=== PATIENT | male | born 1950 | race Caucasian/White ===

== ENCOUNTER → 2018-12-05 | Outpatient (CLI) | payer MEDICARE, MEDICAID | LOC: COL.RAD 14:58 | DX: R06.00 Dyspnea, unspecified (principal); Z87.09 Personal history of other diseases of the respiratory system ==

== ENCOUNTER 2018-12-19 10:42 | Emergency (ER) | payer MEDICARE, MEDICAID ==
[~2018-12-19] VITALS: Ht 170.2 cm; Wt 70.5 kg
[2018-12-19 10:58] VITALS: TEMP 97.5
[2018-12-19 12:00] LABS: BASO # 0.1 (0.0-0.2); BASO % 1.3 % (0.0-2.0); EOS # 0.2 (0.0-0.7); EOS % 2.6 % (0-4.0); GRAN # 3.9 (1.4-6.5); GRAN % 62.1 % (42.2-75.2); HEMATOCRIT 42.3 % (42.0-52.0); HEMOGLOBIN 14.8 g/dl (13.5-18.0); LYMPH # 1.6 (1.2-3.4); MEAN CELL VOLUME 100 fl (80.0-100.0); MEAN CORPUSCULAR HEMOGLOBIN 35 pg (27.0-31.0); MEAN CORPUSCULAR HGB CONC 35 g/dl (33.0-37.0); MEAN PLATELET VOLUME 12.1 fl (7.4-10.4); MONO # 0.5 (0.1-0.6); MONO % 7.4 % (1.7-9.3); PLATELET COUNT 68 K/mm3 (130-400); RED BLOOD COUNT 4.25 M/mm3 (4.20-5.60); REDCELL DISTRIBUTION WIDTH-CV 15.1 % (11.5-14.5)
[2018-12-19 12:04] LABS: ALANINE AMINOTRANSFERASE 33 U/L (21-72); ALBUMIN 3.3 gm/dL (3.5-5.0); ALCOHOL(ethanol),MEDICAL < 10 mg/dL; ALKALINE PHOSPHATASE 67 U/L (50-136); ANION GAP 7 mmol/L (7-16); AST,SGOT 36 U/L (15-37); BILIRUBIN,TOTAL 3.2 mg/dL (0.0-1.0); BLOOD UREA NITROGEN 6 mg/dL (9-20); CALCIUM 8.4 mg/dL (8.4-10.2); CARBON DIOXIDE 26 mmol/L (22-30); CHLORIDE 103 mmol/L (98-107); CREATININE, serum 0.79 mg/dL (0.66-1.25); GLUCOSE 131 mg/dL (74-106); LIPASE 60 U/L (23-300); SODIUM 137 mmol/L (137-145); TOTAL PROTEIN 7.6 gm/dL (6.4-8.2)
[2018-12-19 14:09] LABS: COLLECTION METHOD CLEAN CATCH
[2018-12-19] MEDS ORDERED: ALDACTONE 25MG25 M1 (14:36)
[2018-12-19] MEDS ORDERED: LACTULOSE10 GM/153 (14:39)
[2018-12-19] MEDS ORDERED: stomach med (14:39)
[2018-12-19] MEDS ORDERED: XIFAXAN200 MG (14:40)
[2018-12-19 14:46] LABS: MUCOUS Present /lpf; PH 6 (5-8); URINE APPEARANCE Hazy; URINE BACTERIA None Seen /hpf; URINE BILIRUBIN Negative (NEGATIVE); URINE BLOOD 1+ (NEGATIVE); URINE COLOR Amber; URINE GLUCOSE Negative (NEGATIVE); URINE KETONE Negative (NEGATIVE); URINE LEUKOCYTE ESTERASE Trace (NEGATIVE); URINE NITRATE Positive (NEGATIVE); URINE PROTEIN(semi-quant) 1+ (NEGATIVE); URINE RBC >50 /hpf; URINE UROBILINOGEN >=4.0 mg/dL (NEGATIVE)
[2018-12-19] MEDS ORDERED: OMNICEF 300MG300 MG PO (14:49)
[2018-12-19 15:02] LABS: INR 1.4 (0.8-3.0); PROTHROMBIN TIME 16.2 SECONDS (9.7-12.8)
[2018-12-19 15:20] VITALS: BP 121/86; PULSE 86
== END 2018-12-19 15:24 | disposition home or self-care (01) ==
LOC: COL.ER 10:42
PROVIDERS: Emergency Medicine
DX: N39.0 Urinary tract infection, site not specified (principal); K80.20 Calculus of gallbladder without cholecystitis without obstruction; E72.20 Disorder of urea cycle metabolism, unspecified
CPT/HCPCS: A4216; J0696; J1630; J1885; J2270; J7030; Q9967

== ENCOUNTER 2019-07-19 12:05 | Emergency (ER) | payer MEDICARE, MEDICAID ==
[~2019-07-19] VITALS: Ht 172.7 cm; Wt 68.2 kg
[~2019-07-19 12:05] MED LIST: ALDACTONE 25MG25 M1; LACTULOSE10 GM/153; OMNICEF 300MG300 MG PO; XIFAXAN200 MG; stomach med
[2019-07-19 12:14] VITALS: TEMP 98.8
[2019-07-19] MEDS ORDERED: MAGNESIUM ELEME30 MG PO (12:59)
[2019-07-19 13:09] LABS: HEMATOCRIT 47.4 % (42.0-52.0); HEMOGLOBIN 16.4 g/dl (13.5-18.0); MEAN CELL VOLUME 100 fl (80.0-100.0); MEAN CORPUSCULAR HEMOGLOBIN 35 pg (27.0-31.0); MEAN CORPUSCULAR HGB CONC 35 g/dl (33.0-37.0); MEAN PLATELET VOLUME 12.3 fl (7.4-10.4); PLATELET COUNT 59 K/mm3 (130-400); RED BLOOD COUNT 4.76 M/mm3 (4.20-5.60); REDCELL DISTRIBUTION WIDTH-CV 14.7 % (11.5-14.5)
[2019-07-19 13:22] LABS: INR 1.4 (0.8-3.0); PROTHROMBIN TIME 16.9 SECONDS (9.7-12.8)
[2019-07-19 13:24] LABS: ALBUMIN 3.7 gm/dL (3.5-5.0); BILIRUBIN,TOTAL 5.8 mg/dL (0.0-1.0); C-REACTIVE PROTEIN 6.5 mg/dL (0.0-0.9); CREATININE, serum 0.66 (0.66-1.25); POTASSIUM 4.2 mmol/L (3.4-5.0); TOTAL PROTEIN 8.6 gm/dL (6.4-8.2)
[2019-07-19 13:38] LABS: ARTERIAL BLD GAS TCO2 CT 21.3; ARTERIAL BLOOD GAS BASE EXCESS -1.5 (-2-2); ARTERIAL BLOOD GAS HCO3 20.5 meq/L (22-26); ARTERIAL BLOOD GAS PCO2 27.9 mmHg (35-45); ARTERIAL BLOOD GAS PO2 50.5 mmHg (80-100); ARTERIAL BLOOD GAS pH 7.48 (7.35-7.45)
[2019-07-19 14:05] LABS: BAND 1 % (0-10); BASOPHIL 1 % (0-2); LYMPHOCYTE 12 % (20.0-51.0); NEUTROPHILS 77 % (42.0-75.2); PLATELET ESTIMATE DECREASED (NORMAL)
[2019-07-19 14:24] LABS: COLLECTION METHOD CLEAN CATCH
[2019-07-19 14:34] LABS: MUCOUS Present /lpf; PH 5 (5-8); SQUAMOUS EPITHELIAL None Seen /hpf; URINE APPEARANCE Clear; URINE BACTERIA None Seen /hpf; URINE BILIRUBIN Negative (NEGATIVE); URINE BLOOD 1+ (NEGATIVE); URINE COLOR Amber; URINE GLUCOSE Negative (NEGATIVE); URINE KETONE Negative (NEGATIVE); URINE LEUKOCYTE ESTERASE Negative (NEGATIVE); URINE NITRATE Negative (NEGATIVE); URINE PROTEIN(semi-quant) 1+ (NEGATIVE); URINE UROBILINOGEN Negative (NEGATIVE)
[2019-07-19 16:22] VITALS: BP 132/74; PULSE 100
== END 2019-07-19 16:22 | disposition short-term general hospital (02) ==
LOC: COL.ER 12:05
PROVIDERS: Family Medicine
DX: K81.9 Cholecystitis, unspecified (principal); F17.210 Nicotine dependence, cigarettes, uncomplicated
CPT/HCPCS: J1170; J1956; J2405; J7030; Q9967

== ENCOUNTER 2020-12-09 17:15 | Emergency (ER) | payer MEDICARE, MEDICAID ==
[~2020-12-09] VITALS: Ht 172.7 cm; Wt 65.9 kg
[~2020-12-09 17:15] MED LIST changes: +MAGNESIUM ELEME30 MG PO
[2020-12-09 17:22] VITALS: TEMP 96.8
[2020-12-09] MEDS ORDERED: ANTIVERT 25MG25 MG PO (17:35)
[2020-12-09] MEDS ORDERED: FLOMAX 0.40.4 MG/CAP (17:36)
[2020-12-09] MEDS ORDERED: VITAMIN D 50,1.25 MG PO (17:36)
[2020-12-09] MEDS ORDERED: ALDACTONE 25MG25 M1 PO (17:37)
[2020-12-09] MEDS ORDERED: PROTONIX 40MG T40 MG PO (17:37)
[2020-12-09] MEDS ORDERED: XIFAXAN550 MG PO (17:37)
[2020-12-09] MEDS ORDERED: PROTONIX40 MG/Pack PO (17:38)
[2020-12-09] MEDS ORDERED: ROXICODONE15 MG PO (17:38)
[2020-12-09] MEDS ORDERED: REMERON SOLTAB45 MG PO (17:39)
[2020-12-09] MEDS ORDERED: NYSTATIN OR100 MU/ML PO (17:39)
[2020-12-09] MEDS ORDERED: REMERON 15M15 MG/TA1 PO (17:39)
[2020-12-09] MEDS ORDERED: MAGNESIUM200 MG PO (17:40)
[2020-12-09] MEDS ORDERED: LEVAQUIN 2250 MG/TAB PO (17:40)
[2020-12-09] MEDS ORDERED: LACTULOSE10 GM/153 PO (17:41)
[2020-12-09] MEDS ORDERED: LASIX 40MG TABL40 MG PO (17:41)
[2020-12-09] MEDS ORDERED: KRISTALOSE10 GM/PACK (17:41)
[2020-12-09] MEDS ORDERED: SOMA 350MG350 MG/TAB PO (17:42)
[2020-12-09] MEDS ORDERED: DEBROX OT (17:42)
[2020-12-09 17:44] LABS: BASO % 1.2 % (0.0-2.0); EOS # 0.1 (0.0-0.7); EOS % 3.7 % (0-4.0); GRAN # 2.2 (1.4-6.5); GRAN % 67.3 % (42.2-75.2); HEMATOCRIT 45.1 % (42.0-52.0); HEMOGLOBIN 14.8 g/dl (13.5-18.0); LYMPH # 0.6 (1.2-3.4); LYMPH % 17.7 % (20.0-51.0); MEAN CELL VOLUME 109 fl (80.0-100.0); MEAN CORPUSCULAR HEMOGLOBIN 36 pg (27.0-31.0); MEAN CORPUSCULAR HGB CONC 33 g/dl (33.0-37.0); MONO # 0.3 (0.1-0.6); MONO % 9.5 % (1.7-9.3); RED BLOOD COUNT 4.15 M/mm3 (4.20-5.60); REDCELL DISTRIBUTION WIDTH-CV 16.6 % (11.5-14.5)
[2020-12-09] MEDS ORDERED: CAFFEINE (17:44)
[2020-12-09] MEDS ORDERED: ASPIRIN (17:44)
[2020-12-09] MEDS ORDERED: ANORO IH (17:44)
[2020-12-09 17:49] LABS: ALBUMIN 3.3 gm/dL (3.5-5.0); BILIRUBIN,TOTAL 3.8 mg/dL (0.0-1.0); CALCIUM 8.1 mg/dL (8.4-10.2); CREATININE, serum 0.78 (0.66-1.25); POTASSIUM 4.3 mmol/L (3.4-5.0); TOTAL PROTEIN 8.2 gm/dL (6.4-8.2)
[2020-12-09 17:54] LABS: PLATELET COUNT 29 K/mm3 (130-400)
[2020-12-09 18:00] LABS: TROPONIN-I 0.029 ng/mL (0.000-0.035)
[2020-12-09 18:27] LABS: LACTIC ACID 4.8 mmol/L (0.4-2.0)
[2020-12-09 19:37] LABS: INR 1.5 (0.8-3.0); PROTHROMBIN TIME 16.7 SECONDS (9.7-12.8)
[2020-12-09 21:30] VITALS: BP 96/77; PULSE 89
== END 2020-12-09 21:30 | disposition short-term general hospital (02) ==
LOC: COL.ER 17:15
PROVIDERS: Emergency Medicine
DX: K74.60 Unspecified cirrhosis of liver (principal); R06.00 Dyspnea, unspecified; D69.6 Thrombocytopenia, unspecified; D64.9 Anemia, unspecified; Z85.05 Personal history of malignant neoplasm of liver; Z88.0 Allergy status to penicillin; Z79.82 Long term (current) use of aspirin
CPT/HCPCS: J0696; J7040; Q9967

== ENCOUNTER 2020-12-21 22:46 | Emergency (ER) | payer MEDICARE, MEDICAID ==
[~2020-12-21] VITALS: Ht 172.7 cm; Wt 54.5 kg
[~2020-12-21 22:46] MED LIST changes: +ALDACTONE 25MG25 M1 PO; +ANORO IH; +ANTIVERT 25MG25 MG PO; +ASPIRIN; +CAFFEINE; +DEBROX OT; +FLOMAX 0.40.4 MG/CAP; +KRISTALOSE10 GM/PACK; +LACTULOSE10 GM/153 PO; +LASIX 40MG TABL40 MG PO; +LEVAQUIN 2250 MG/TAB PO; +MAGNESIUM200 MG PO; +NYSTATIN OR100 MU/ML PO; +PROTONIX 40MG T40 MG PO; +PROTONIX40 MG/Pack PO; +REMERON 15M15 MG/TA1 PO; +REMERON SOLTAB45 MG PO; +ROXICODONE15 MG PO; +SOMA 350MG350 MG/TAB PO; +VITAMIN D 50,1.25 MG PO; +XIFAXAN550 MG PO
[2020-12-21 22:50] VITALS: TEMP 99
[2020-12-21 23:58] LABS: HEMOGLOBIN 11.6 g/dl (13.5-18.0); MEAN CELL VOLUME 108 fl (80.0-100.0); MEAN CORPUSCULAR HEMOGLOBIN 36 pg (27.0-31.0); MEAN CORPUSCULAR HGB CONC 33 g/dl (33.0-37.0); RED BLOOD COUNT 3.23 M/mm3 (4.20-5.60); REDCELL DISTRIBUTION WIDTH-CV 17.6 % (11.5-14.5)
[2020-12-22 00:04] LABS: ARTERIAL BLD GAS O2 SATURATION 92.8 % (92-100); ARTERIAL BLOOD GAS BASE EXCESS -1.7 (-2-2); ARTERIAL BLOOD GAS HCO3 20.4 meq/L (22-26); ARTERIAL BLOOD GAS PCO2 27.6 mmHg (35-45); ARTERIAL BLOOD GAS PO2 57.7 mmHg (80-100); ARTERIAL BLOOD GAS pH 7.48 (7.35-7.45)
[2020-12-22 00:25] LABS: INR 2.1 (0.8-3.0); PLATELET COUNT 23 K/mm3 (130-400); PROTHROMBIN TIME 23.1 SECONDS (9.7-12.8)
[2020-12-22 00:26] LABS: ALANINE AMINOTRANSFERASE 31 U/L (4-49); ALBUMIN 2.4 gm/dL (3.5-5.0); ALKALINE PHOSPHATASE 71 U/L (50-136); ANION GAP 6 mmol/L (7-16); AST,SGOT 38 U/L (15-37); BILIRUBIN,TOTAL 6.3 mg/dL (0.0-1.0); BLOOD UREA NITROGEN 23 mg/dL (9-20); CALCIUM 7.4 mg/dL (8.4-10.2); CARBON DIOXIDE 20 mmol/L (22-30); CHLORIDE 100 mmol/L (98-107); CREATININE, serum 0.91 (0.66-1.25); GLUCOSE 114 mg/dL (74-106); PARTIAL THROMBOPLASTIN TIME 45.9 SECONDS (26.0-37.0); POTASSIUM 5.5 mmol/L (3.4-5.0); SODIUM 126 mmol/L (137-145); TOTAL PROTEIN 6.5 gm/dL (6.4-8.2)
[2020-12-22 00:35] LABS: BAND 11 % (0-10); EOSINOPHIL 1 % (0-4); LYMPHOCYTE 6 % (20.0-51.0); METAMYELOCYTE 2 % (0-0); NEUTROPHILS 65 % (42.0-75.2)
[2020-12-22 00:39] LABS: TROPONIN-I < 0.012 ng/mL (0.000-0.035)
[2020-12-22 00:40] LABS: ANISOCYTOSIS 1+; PLATELET ESTIMATE DECREASED (NORMAL)
[2020-12-22 03:11] LABS: ARTERIAL BLOOD GAS BASE EXCESS -3.7 (-2-2); ARTERIAL BLOOD GAS HCO3 18.8 meq/L (22-26); ARTERIAL BLOOD GAS PCO2 26.9 mmHg (35-45); ARTERIAL BLOOD GAS PO2 58.7 mmHg (80-100); ARTERIAL BLOOD GAS pH 7.43 (7.35-7.45)
[2020-12-22 03:12] LABS: ARTERIAL BLD GAS O2 SATURATION 90.9 % (92-100)
[2020-12-22 04:53] VITALS: BP 121/61; PULSE 85
== END 2020-12-22 05:10 | disposition short-term general hospital (02) ==
LOC: COL.ER 22:46
PROVIDERS: Emergency Medicine; Nurse Practitioner Primary Care
DX: J44.1 Chronic obstructive pulmonary disease with (acute) exacerbation (principal); A41.9 Sepsis, unspecified organism; D69.6 Thrombocytopenia, unspecified; K74.60 Unspecified cirrhosis of liver; C22.8 Malignant neoplasm of liver, primary, unspecified as to type; Z88.0 Allergy status to penicillin; Z87.891 Personal history of nicotine dependence
CPT/HCPCS: J0456; J0696; J2543; J2930; J3370; J7030; J7040; J7050